=== PATIENT | male | born 1940 | race Caucasian/White ===

== ENCOUNTER → 2016-08-06 | Outpatient (CLI) | payer BC ==
--- NOTE | 2016-08-06 14:26 | DIAGNOSTIC IMAGING REPORT ---
Venous Doppler left leg VENOUS DOPP LOWER EXT UNILAT CLINICAL HISTORY: LLE PAIN SWELLING pain. Edema. TECHNIQUE: Venous Doppler COMPARISON STUDY: None FINDINGS: Normal study. Instill note is made of a 5 x 3 cm popliteal cyst IMPRESSION: Popliteal cyst. No evidence for deep venous thrombosis. Electronically signed by: Isak Beckwith M.D. 08/06/2016 2:25 PM Dictated Date/Time: 08/06/2016 2:24 PM
--- NOTE | 2016-08-06 14:28 | DIAGNOSTIC IMAGING REPORT ---
BILATERAL LOWER EXTREMITY ARTERIAL DOPPLER ULTRASOUND CLINICAL HISTORY: Left lower extremity pain and swelling. COMPARISON STUDY: No previous studies for comparison. FINDINGS: The right ankle-brachial index measured 1.19 when using posterior tibial artery and 1.12 when using the dorsalis pedis. The left measures 1.18 when using posterior tibial artery and 1.15 when using the dorsalis pedis. No elevated velocities were identified on this examination. There was minimal atherosclerotic plaque. Flow within the left lower extremity was triphasic. Flow within the right lower extremity was biphasic and triphasic. IMPRESSION: 1. No evidence of a hemodynamically significant stenosis. 2. Normal bilateral ankle to brachial indices. 3. Unremarkable bilateral lower extremity arterial Doppler for age. Electronically signed by: Viral Porras M.D. 08/06/2016 2:27 PM Dictated Date/Time: 08/06/2016 2:24 PM
== END | disposition home or self-care (01) ==
LOC: C.ULTR 12:25
PROVIDERS: ATTEND Physician Assistant
DX: M79.662 Pain in left lower leg (principal); M79.89 Other specified soft tissue disorders; M71.22 Synovial cyst of popliteal space [Baker], left knee

== ENCOUNTER → 2017-02-21 | Outpatient (CLI) | payer BC ==
[2017-02-21 17:25] LABS: BASO % 0.5 %; BASO ABS # 0.03 K/uL (0-0.2); COMPLETE YES; HEMATOCRIT 46.2 % (42-52); IG% 0.8 %; LYMPH % 19.8 %; MEAN CELL VOLUME 94.7 fL (80-100); MEAN CORPUSCULAR HEMOGLOBIN 31.8 pg (25-34); MEAN CORPUSCULAR HGB CONC 33.5 g/dl (32-36); MONO % 12.2 %; NEUT % 63.7 %; PLATELET COUNT 142 K/uL (130-400); RED BLOOD COUNT 4.88 M/uL (4.7-6.1); WHITE BLOOD COUNT 6.07 K/uL (4.8-10.8)
[2017-02-21 17:28] LABS: BLOOD UREA NITROGEN 25 mg/dl (7-18); BUN/CREATININE RATIO 25.8 (10-20); CALCIUM 9.3 mg/dl (8.5-10.1); CARBON DIOXIDE 31 mmol/L (21-32); CHLORIDE 104 mmol/L (98-107); CHOLESTEROL 148 mg/dl (0-200); CREATININE 0.97 mg/dl (0.60-1.40); GLUCOSE 89 mg/dl (70-99); POTASSIUM 3.8 mmol/L (3.5-5.1); SODIUM 141 mmol/L (136-145); TRIGLYCERIDES 274 mg/dl (0-150); VERY LOW DENSITY LIPOPROT CALC 55 mg/dl
[2017-02-21 17:33] LABS: CHOLESTEROL/HDL RATIO 4.4; HDL CHOLESTEROL 34 mg/dl; LDL CHOLESTEROL CALCULATED 59 mg/dl
[2017-02-21 17:44] LABS: PROSTATE SPECIFIC ANTIGEN 0.017 ng/ml (0.000-4.000)
== END | disposition home or self-care (01) ==
LOC: C.LABPBG 11:36
PROVIDERS: ATTEND Internal Medicine Geriatric Medicine
DX: I10 Essential (primary) hypertension (principal); M19.90 Unspecified osteoarthritis, unspecified site; C61 Malignant neoplasm of prostate; D12.6 Benign neoplasm of colon, unspecified; M54.9 Dorsalgia, unspecified; K25.9 Gastric ulcer, unspecified as acute or chronic, without hemorrhage or perforation